=== PATIENT | female | born 2000 | race African-American/Black ===

== ENCOUNTER 2024-02-13 14:23 | Emergency (ER) | payer OTHER, SELFPAY ==
[2024-02-13 14:41] VITALS: BP 113/75; PULSE 79; RESP 16; TEMP 36.8; O2SAT 100
--- NOTE | 2024-02-13 14:53 | ED.FEMALEGU ---
HPI - Female Genitourinary General Chief complaint: Urogenital-Female Stated complaint: vaginal discharge Time Seen by Provider: 02/13/24 14:48 Source: patient and RN notes reviewed Mode of arrival: ambulatory Limitations: no limitations History of Present Illness HPI Narrative: Patient presents today with a 3 day history of thick yellow vaginal discharge and lower abdominal cramping. She denies dysuria, hematuria, or any additional urinary symptoms. She recently did a test at home that was negative. She does have unprotected intercourse with 1 partner and would like to be tested for gonorrhea, chlamydia, and Trichomonas. Related Data Home Medications Medication Instructions Recorded Confirmed norethindrone 1 mg-ethinyl 1 tablet PO DAILY 02/13/24 02/13/24 estradiol 20 mcg (21)-iron 75 mg (7) tablet ([place] Fe 10/31 (28)) Allergies Allergy/AdvReac Type Severity Reaction Status Date / Time No Known Allergies Allergy Verified 02/13/24 14:29 Review of Systems Review of Systems: CONSTITUTIONAL: Denies body aches, fever, chills, or sweats. EYES: Denies visual changes, redness, or discharge. ENT: Denies rhinorrhea, congestion, sore throat, or otalgia. CARDIOVASCULAR: Denies chest pain, palpitations, or edema. RESPIRATORY: Denies cough or dyspnea. GASTROINTESTINAL: Denies nausea, vomiting, or diarrhea.+lower abdominal cramping GENITOURINARY: Denies dysuria or hematuria.+vaginal discharge SKIN: Denies rash, itching, or wounds. MUSCULOSKELETAL: Denies back pain, joint pain, or myalgia. NEUROLOGIC: Denies headache, numbness, tingling, or weakness. PSYCH: Denies depression or anxiety. PMFSH Comments At time of signature, I have reviewed and agree with nursing past medical, surgical, social and family history unless otherwise noted. Please see nursing chart for further information. There is no relevant family history pertinent to the presenting complaint Exam Narrative: GENERAL: Well-appearing, well-nourished, and in no acute distress. HEAD: Normocephalic, atraumatic. EYES: EOMI. No redness or drainage. Conjunctivae normal. ENT: Mucous membranes pink and moist. NECK: Normal AROM. CHEST: No respiratory distress. : Exam deferred as patient has a small child with her. EXTREMITIES: Normal range of motion. No edema. SKIN: Warm, dry, no rash. Capillary refill normal. Normal skin turgor. NEURO: No focal deficits. Alert and oriented x3. Gait steady. PSYCH: Normal affect. No signs of depression or anxiety. Course Course Level of Care: Express Care Visit Vital Signs Vital signs: Vital Signs Temperature 98.2 F 02/13/24 14:41 Pulse Rate 79 02/13/24 14:41 Respiratory Rate 16 02/13/24 14:41 Blood Pressure 113/75 02/13/24 14:41 Pulse Oximetry 100 02/13/24 14:41 Oxygen Delivery Room Air 02/13/24 14:41 Temperature 98.2 F 02/13/24 14:41 Pulse Rate 79 02/13/24 14:41 Respiratory Rate 16 02/13/24 14:41 Blood Pressure 113/75 02/13/24 14:41 Pulse Oximetry 100 02/13/24 14:41 Oxygen Delivery Room Air 02/13/24 14:41 Reviewed MDM - Female Genitourinary MDM Narrative Medical decision making narrative: Testing for gonorrhea, chlamydia, Trichomonas sent to the hospital for evaluation. Patient will be started prophylactically on doxycycline and metronidazole. Rocephin injection given. Anticipatory guidance given. Differential Diagnosis Differential diagnosis: Likely bacterial vaginosis, trichomoniasis and other (Gonorrhea, chlamydia) Critical Care Time Critical Care Time Critical Care Time: No Discharge Plan Discharge Clinical Impression: Concern about sexually transmitted disease in female without diagnosis, Vaginal discharge Patient Disposition: Home, Self-Care Condition: Stable Instructions: Chlamydia (ED), Gonorrhea (ED), Trichomoniasis (ED) Additional Instructions: Your urine sample has been sent off to test for gonorrhea, ch
[2024-02-13] MEDS: cefTRIAXone 500 MG, LIDOCAINE HCL 1% LOCAL INJ 1 ML IM (15:05)
[2024-02-13 19:02] LABS: Trichomonas Vag PCR NOT DETECTED (NOT DETECTE)
[2024-02-13 19:27] LABS: Chlamydia trachomatis DETECTED (NOT DETECTE); Neisseria gonorrhoeae PCR NOT DETECTED (NOT DETECTE)
== END 2024-02-13 15:10 | disposition home or self-care (01) ==
PROVIDERS: Emergency Provider Nurse Practitioner
DX: A74.9 Chlamydial infection, unspecified (principal)
CPT/HCPCS: 87491; 87591; 87661; 96372; 99204; G0463; J0696

== ENCOUNTER 2024-03-22 17:15 | Emergency (ER) | payer OTHER, SELFPAY ==
--- NOTE | 2024-03-22 17:31 | ED.FEMALEGU ---
HPI - Female Genitourinary General Chief complaint: Urogenital-Female Stated complaint: uti symptoms Time Seen by Provider: 03/22/24 17:58 Source: patient and RN notes reviewed Mode of arrival: ambulatory Limitations: no limitations History of Present Illness HPI Narrative: 23-year-old female presents with concern for dysuria, vaginal discharge. She reports she was treated for chlamydia 1 month ago, her partner was treated as well. 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 She denies fever, body aches, chills, sweats. Reports she has decreased her fluid intake. She denies nausea, vomiting, back pain, abdominal pain. MD elicited complaint: UTI and vaginal discharge Related Data Home Medications Medication Instructions Recorded Confirmed norethindrone 1 mg-ethinyl 1 tablet PO DAILY 02/13/24 03/22/24 estradiol 20 mcg (21)-iron 75 mg (7) tablet ([place] Fe 10/31 (28)) Allergies Allergy/AdvReac Type Severity Reaction Status Date / Time No Known Allergies Allergy Verified 03/22/24 17:44 Review of Systems Review of Systems: CONSTITUTIONAL: Denies malaise, chills, sweats, or fever. CARDIOVASCULAR: Denies chest pain, palpitations, or edema. RESPIRATORY: Denies cough or dyspnea. GASTROINTESTINAL: Denies abdominal pain, nausea, vomiting, diarrhea GENITOURINARY: Reports dysuria, yellow vaginal discharge. Denies frequency, urgency, suprapubic pressure. Denies flank pain or hematuria. SKIN: Denies rash or itching. MUSCULOSKELETAL: Denies back pain or myalgia. All systems reviewed & are unremarkable except as noted in HPI and below PMFSH Comments At time of signature, agree with nursing past medical, surgical, social and family history. There is no relevant family history pertinent to the presenting complaint Exam Narrative: GENERAL: Well-appearing, well-nourished, and in no acute distress. HEAD: Normocephalic. EYES: PERRLA, conjunctivae clear. NECK: Supple. No lymphadenopathy CHEST: Clear to auscultation. No respiratory distress. HEART: Regular rate and rhythm. ABDOMEN: Soft, nontender upon palpation, nondistended, normal active bowel sounds, no palpable or pulsatile masses, no guarding. No CVA tenderness SKIN: Warm, dry, no rash. NEURO: Alert and oriented x3. PSYCH: Normal mood and affect Course Course Emergency Course: I discussed with patient UA findings, patient is not concern for new exposure to STI, however because she was positive a month ago she would like to be tested. She would not like to pursue treatment unless tests are positive. We will treat for urinary tract infection. Patient is aware of diagnosis, understands and agrees to treatment plan. Anticipatory guidance given. Patient agrees to follow-up as directed and is aware of reasons to seek care at the emergency department. Portions of this record may have been created with voice recognition software Level of Care: Express Care Visit Vital Signs Vital signs: Reviewed. MDM - Female Genitourinary MDM Narrative Medical decision making narrative: Exam findings and UA show no acute concerns or changes; patient is non-toxic appearing and is in no distress. Patient is appropriate for outpatient treatment and follow-up. Differential Diagnosis Differential diagnosis: Likely urinary tract infection and cystitis Critical Care Time Critical Care Time Critical Care Time: No Discharge Plan Discharge Clinical Impression: Urinary tract infection, Vaginal discharge Patient Disposition: Home, Self-Care Condition: Stable Instructions: Antibiotic Form, Urinary Tract Infection in Women (ED) Additional Instructions: We will send a urine culture to the lab; if the culture identifies an organism that the prescribed antibiotic will not treat, you will receive a phone call from an urgent care staff member and an appropriate antibiotic will be prescribed. -Your sy
[2024-03-22 17:36] VITALS: BP 108/68; PULSE 83; RESP 16; TEMP 36.9; O2SAT 100
[2024-03-23 20:08] LABS: Trichomonas Vag PCR NOT DETECTED (NOT DETECTE)
[2024-03-23 20:31] LABS: Chlamydia trachomatis NOT DETECTED (NOT DETECTE); Neisseria gonorrhoeae PCR NOT DETECTED (NOT DETECTE)
== END 2024-03-22 18:20 | disposition home or self-care (01) ==
PROVIDERS: Emergency Provider Nurse Practitioner
DX: N39.0 Urinary tract infection, site not specified (principal); B96.20 Unspecified Escherichia coli [E. coli] as the cause of diseases classified elsewhere; N89.8 Other specified noninflammatory disorders of vagina
CPT/HCPCS: 81003; 87077; 87086; 87088; 87491; 87591; 87661; 99213; G0463